=== PATIENT | female | born 1935 | race Caucasian/White ===

== ENCOUNTER 2019-08-23 03:45 | Emergency (ER) | payer MEDICARE ==
[2019-08-23 04:00] VITALS: BP 156/81; PULSE 82
--- NOTE | 2019-08-23 04:25 | EDM.PDOC ---
ED HPI GENERAL MEDICAL PROBLEM - General Chief Complaint: Skin Complaint Stated Complaint: POST SURGER BLEED Time Seen by Provider: 08/23/19 04:12 Source of Information: Reports: Patient, RN Notes Reviewed History Limitations: Reports: No Limitations - History of Present Illness INITIAL COMMENTS - FREE TEXT/NARRATIVE: 83-year-old female presents emergency department today with complaint of bleeding from surgical site she recently had surgical excision on the back of her left arm she woke up this morning there was a large pool of blood she is very concerned. Denies any lightheaded feeling or dizziness - Related Data Allergies Allergy/AdvReac Type Severity Reaction Status Date / Time No Known Allergies Allergy Verified 08/16/14 08:15 Home Meds: Home Meds Potassium Chloride [Klor-Con 10] 10 meq PO BID 10/13/13 [History] Simvastatin 20 mg PO BEDTIME 10/13/13 [History] Triamterene/Hydrochlorothiazid [Triamterene-HCTZ 37.5-25 MG] 37.5 mg PO DAILY [History] metFORMIN [metFORMIN XR] 500 mg PO BIDM 10/13/13 [History] Aspirin [Children's Aspirin] 81 mg PO DAILY 07/09/14 [History] Cholecalciferol (Vitamin D3) [Vitamin D3] 2,000 unit PO DAILY 07/09/14 [History] Cyanocobalamin (Vitamin B-12) [Vitamin B12] 5,000 mcg PO DAILY 08/23/19 [History ] Memantine [Namenda] 10 mg PO BID 08/23/19 [History] Past Medical History Endocrine/Metabolic History: Reports: Diabetes, Type II Oncologic (Cancer) History: Reports: Malignant Melanoma - Past Surgical History GI Surgical History: Reports: Appendectomy Dermatological Surgical History: Reports: Skin Biopsy Social & Family History - Tobacco Use Smoking Status *Q: Never Smoker - Caffeine Use Caffeine Use: Reports: Coffee ED ROS GENERAL - Review of Systems Review Of Systems: See Below Constitutional: Reports: No Symptoms Respiratory: Reports: No Symptoms Cardiovascular: Reports: No Symptoms GI/Abdominal: Reports: No Symptoms Skin: Reports: Wound ED EXAM, SKIN/RASH Exam: See Below Text/Narrative:: Examination of the integument system after removing dressing which was consistent of dried blood the surgical wound is clean dry and intact I do not appreciate any active bleeding there is a small hematoma which is appreciated around the base of the wound otherwise sutures are tight no products are expressed with palpation Exam Limited By: No Limitations General Appearance: Alert, WD/WN, No Apparent Distress Course - Vital Signs Last Recorded V/S: Last Vital Signs Temp 97.6 F 08/23/19 04:00 Pulse 82 08/23/19 04:00 Resp 16 08/23/19 04:00 BP 156/81 H 08/23/19 04:00 Pulse Ox 97 08/23/19 04:00 Departure - Departure Time of Disposition: 04:24 Disposition: Home, Self-Care 01 Condition: Fair Clinical Impression: Visit for wound check - Discharge Information Referrals: PCP,None [Primary Care Provider] - Additional Instructions: Continue with wound care instructions already provided by dermatology keep follow-up with dermatology call or return to the emergency department worsening of symptoms. Sepsis Event Note - Evaluation Sepsis Screening Result: No Definite Risk - Focused Exam Vital Signs: Vital Signs Temp Pulse Resp BP Pulse Ox 08/23/19 04:00 97.6 F 82 16 156/81 H 97 08/23/19 03:59 97.6 F 82 16 156/81 H 97 Date Exam was Performed: 08/23/19 Time Exam was Performed: 04:21 - Assessment/Plan Plan: Assessment Acuity = acute Site and laterality = wound check Etiology = postsurgical Manifestations = none Location of injury = Home Lab values = none Plan Continue with wound care instructions follow-up with dermatology for postoperative care This note was dictated using [email or web address] voice recognition software please call with any questions on syntax or grammar.
== END 2019-08-23 04:29 | disposition home or self-care (01) ==
LOC: JP.ED 03:45
DX: L76.31 Postprocedural hematoma of skin and subcutaneous tissue following a dermatologic procedure (principal); E11.9 Type 2 diabetes mellitus without complications; Z79.899 Other long term (current) drug therapy; Z79.82 Long term (current) use of aspirin; Z79.84 Long term (current) use of oral hypoglycemic drugs
CPT/HCPCS: 99281; 99283

== ENCOUNTER 2021-09-05 14:25 | Emergency (ER) | payer MEDICARE ==
[2021-09-05] MEDS ORDERED: Glucagon,Human Recombinant 1 MG Vial IM PRN ×2 (16:16→17:02)
[2021-09-05] MEDS ORDERED: 50% Dextrose in Water 50 ML Syringe IVPUSH PRN ×2 (16:16→17:02)
[2021-09-05] MEDS ORDERED: Insulin Regular, Human 100 Units/ML 3 ML Vial SUBCUT ONE ×2 (16:16→17:02)
[2021-09-05 17:52] VITALS: BP 149/58; PULSE 64
[2021-09-05] MEDS ORDERED: Meclizine 25 MG Tab PO ONE (17:53)
[2021-09-05] MEDS ORDERED: Meclizine 25 MG Tab ONE (18:05)
== END 2021-09-05 18:11 | disposition home or self-care (01) ==
LOC: JP.ED 14:25
DX: E11.65 Type 2 diabetes mellitus with hyperglycemia (principal); E86.0 Dehydration; Z79.899 Other long term (current) drug therapy; Z79.84 Long term (current) use of oral hypoglycemic drugs; Z79.82 Long term (current) use of aspirin
CPT/HCPCS: 36415; 70450; 80053; 81001; 82947; 85025; 99283; 99284; A9270; J1815

== ENCOUNTER 2021-09-10 11:02 | Emergency (ER) | payer MEDICARE ==
[2021-09-10 11:31] VITALS: PULSE 84
[2021-09-10] MEDS ORDERED: Sodium Chloride 0.9% 10 ML Syringe FLUSH PRN (12:08)
[2021-09-10] MEDS ORDERED: Glucagon,Human Recombinant 1 MG Vial IM PRN (12:10)
[2021-09-10] MEDS ORDERED: 50% Dextrose in Water 50 ML Syringe IVPUSH PRN (12:10)
[2021-09-10] MEDS ORDERED: Insulin Regular, Human 100 Units/ML 3 ML Vial IVPUSH ONE (12:10)
[2021-09-10] MEDS ORDERED: Lactated Ringers 1,000 ML IV SCH (12:15)
[2021-09-10] MEDS ORDERED: metFORMIN 500 MG Tab PO ONE ×2 (12:16→14:48)
[2021-09-10 15:09] VITALS: BP 129/71
== END 2021-09-10 15:40 | disposition home or self-care (01) ==
LOC: JP.ED 11:02
DX: E11.65 Type 2 diabetes mellitus with hyperglycemia (principal); Z90.49 Acquired absence of other specified parts of digestive tract; Z79.899 Other long term (current) drug therapy; Z79.82 Long term (current) use of aspirin; Z79.84 Long term (current) use of oral hypoglycemic drugs
CPT/HCPCS: 36415; 80053; 82947; 83036; 85025; 99283; 99284; A9270-GY; J1815-GY; J3490; J7120

== ENCOUNTER 2022-02-18 12:53 | Emergency (ER) | payer MEDICARE ==
[2022-02-18 14:08] VITALS: BP 136/66; PULSE 87
== END 2022-02-18 14:51 ==
LOC: JP.ED 12:53
DX: S63.621A Sprain of interphalangeal joint of right thumb, initial encounter (principal); S00.33XA Contusion of nose, initial encounter; I10 Essential (primary) hypertension; E11.9 Type 2 diabetes mellitus without complications; Z87.891 Personal history of nicotine dependence; Z88.0 Allergy status to penicillin; Z88.8 Allergy status to other drugs, medicaments and biological substances; Z79.82 Long term (current) use of aspirin; Z79.899 Other long term (current) drug therapy; Z79.84 Long term (current) use of oral hypoglycemic drugs; W18.30XA Fall on same level, unspecified, initial encounter
CPT/HCPCS: 73130-26-RT; 73130-RT; 99283

== ENCOUNTER 2022-05-23 09:24 | Emergency (ER) | payer MEDICARE, OTHER ==
[2022-05-23] MEDS ORDERED: Methocarbamol 500 MG Tab PO ONE (09:50)
[2022-05-23] MEDS ORDERED: fentaNYL 100 MCG/2 ML SDV IM ONE (09:50)
[2022-05-23 10:25] VITALS: BP 139/61; PULSE 71
== END 2022-05-23 11:04 | disposition home or self-care (01) ==
LOC: JP.ED 09:24
DX: M54.50 Low back pain, unspecified (principal); I10 Essential (primary) hypertension; E11.9 Type 2 diabetes mellitus without complications; Z88.0 Allergy status to penicillin; Z88.6 Allergy status to analgesic agent; Z79.899 Other long term (current) drug therapy; Z79.84 Long term (current) use of oral hypoglycemic drugs; Z79.82 Long term (current) use of aspirin; Z90.49 Acquired absence of other specified parts of digestive tract; Z87.891 Personal history of nicotine dependence; W19.XXXA Unspecified fall, initial encounter
CPT/HCPCS: 96372; 99283; 99284; A9270-GY; J3010

== ENCOUNTER 2022-05-24 18:22 | Observation (INO) | payer MEDICARE ==
[2022-05-24] MEDS ORDERED: oxyCODONE 5 MG Tab PO ONE (18:37)
[2022-05-24] MEDS ORDERED: Lidocaine 5% 700 MG Patch TRDERM ONE (19:13)
[2022-05-24 21:50] LABS: CORONAVIRUS COVID-19 NAA NEGATIVE (NEGATIVE)
[2022-05-24] MEDS ORDERED: LORazepam 2 MG/ML SDV IV PRN (23:34)
[2022-05-24] MEDS ORDERED: Ondansetron 4 MG Tab.DIS PO PRN (23:34)
[2022-05-24] MEDS ORDERED: Sodium Chloride 0.9% 1,000 ML IV SCH (23:34)
[2022-05-24] MEDS ORDERED: traMADol 50 MG Tab PO PRN (23:34)
[2022-05-24] MEDS ORDERED: Acetaminophen 325 MG Tab PO PRN (23:34)
[2022-05-24] MEDS ORDERED: Ondansetron 4 MG/2 ML SDV IV PRN (23:34)
[2022-05-25] MEDS ORDERED: Lisinopril 5 MG Tab ONE (00:34)
[2022-05-25] MEDS ORDERED: Lisinopril 5 MG Tab PO ONE (00:36)
[2022-05-25] MEDS: Lisinopril 2.5 MG Tab PO SCH ×2 (00:37→08:23)
[2022-05-25] MEDS: Memantine 10 MG Tab PO SCH ×3 (00:48→08:23)
[2022-05-25] MEDS: Potassium Chloride 10 MEQ Cap.ER PO SCH ×2 (00:48→00:51)
[2022-05-25] MEDS: Aspirin 81 MG Tab.Chew PO SCH ×3 (00:49→08:21)
[2022-05-25] MEDS ORDERED: Levothyroxine 25 MCG Tab PO SCH (07:30)
[2022-05-25] MEDS ORDERED: Potassium Chloride 10 MEQ Cap.ER PO SCH (08:00)
[2022-05-25] MEDS ORDERED: Furosemide 20 MG Tab PO SCH (09:00)
[2022-05-25 11:34] VITALS: BP 139/72; PULSE 76
== END 2022-05-25 14:15 | disposition home or self-care (01) ==
LOC: JP.ED 18:22 → JP.MS 21:51
PROVIDERS: ADMIT Internal Medicine; ATTEND Internal Medicine
DX: M54.50 Low back pain, unspecified (principal); M51.36 Other intervertebral disc degeneration, lumbar region; F03.90 Unspecified dementia, unspecified severity, without behavioral disturbance, psychotic disturbance, mood disturbance, and anxiety; F44.89 Other dissociative and conversion disorders; E86.0 Dehydration; I12.9 Hypertensive chronic kidney disease with stage 1 through stage 4 chronic kidney disease, or unspecified chronic kidney disease; E11.22 Type 2 diabetes mellitus with diabetic chronic kidney disease; N18.30 Chronic kidney disease, stage 3 unspecified; M47.816 Spondylosis without myelopathy or radiculopathy, lumbar region; Z74.09 Other reduced mobility; Z78.9 Other specified health status; Z79.899 Other long term (current) drug therapy; Z79.82 Long term (current) use of aspirin; Z79.4 Long term (current) use of insulin; Z20.822 Contact with and (suspected) exposure to COVID-19; Z88.0 Allergy status to penicillin; Z88.6 Allergy status to analgesic agent; Z98.890 Other specified postprocedural states
CPT/HCPCS: 0241U; 36415; 72100; 80048; 81001; 82947; 85025; 97112; 97161; 99223; 99238; 99284; A9270; G0378

== ENCOUNTER 2022-05-25 19:59 | Inpatient (IN) | payer MEDICARE, OTHER ==
[2022-05-25 20:40] LABS: ESTIMATED GFR 40 mL/min (>60)
[2022-05-25 20:56] LABS: CORONAVIRUS COVID-19 NAA NEGATIVE (NEGATIVE)
[2022-05-26] MEDS ORDERED: LORazepam 0.5 MG Tab PO PRN (04:45)
[2022-05-26] MEDS ORDERED: Lidocaine 5% 700 MG Patch TRDERM ONE (04:45)
[2022-05-26] MEDS: OLANZapine 5 MG Tab PO SCH (10:16)
[2022-05-26] MEDS: Divalproex Sodium Delayed-Release 250 MG Tab.CR PO SCH ×2 (11:53→16:22)
[2022-05-26] MEDS ORDERED: 50% Dextrose in Water 50 ML Syringe IV PRN (12:01)
[2022-05-26] MEDS ORDERED: traMADol 50 MG Tab PO PRN (12:01)
[2022-05-26] MEDS ORDERED: Haloperidol Lactate 5 MG/ML SDV IVPUSH PRN (12:01)
[2022-05-26] MEDS ORDERED: Ondansetron 4 MG/2 ML SDV IV PRN (12:01)
[2022-05-26] MEDS ORDERED: Glucose Gel 15 GM in 37.5 GM Tube PO PRN (12:01)
[2022-05-26] MEDS ORDERED: Sodium Chloride 0.9% 10 ML Syringe FLUSH PRN (12:01)
[2022-05-26] MEDS: Lidocaine 5% 700 MG Patch TRDERM SCH (13:05)
[2022-05-26] MEDS: Enoxaparin 30 MG/0.3 ML Syringe SUBCUT SCH (13:05)
[2022-05-26] MEDS: Acetaminophen 325 MG Tab PO PRN (13:06)
[2022-05-26] MEDS: Furosemide 20 MG Tab PO SCH (13:06)
[2022-05-26] MEDS: Insulin Lispro 100 Unit/ML 3 ML KwikPen SUBCUT SCH ×3 (13:10→21:02)
[2022-05-26] MEDS: Potassium Chloride 10 MEQ Cap.ER PO SCH (16:22)
[2022-05-26] MEDS ORDERED: Divalproex Sodium Delayed-Release 250 MG Tab.CR PO SCH (17:00)
[2022-05-26] MEDS ORDERED: Lisinopril 5 MG Tab PO ONE (17:27)
[2022-05-26] MEDS: Memantine 10 MG Tab PO SCH (21:09)
[2022-05-26] MEDS: Insulin Glargine,Human Rec. Analog 100 Units/ML 3 ML Pen SUBCUT SCH (21:10)
[2022-05-27] MEDS: Insulin Lispro 100 Unit/ML 3 ML KwikPen SUBCUT SCH ×4 (07:51→21:15)
[2022-05-27] MEDS: Acetaminophen 325 MG Tab PO PRN (08:14)
[2022-05-27] MEDS: Aspirin 81 MG Tab.Chew PO SCH (08:14)
[2022-05-27] MEDS: Lisinopril 10 MG Tab PO SCH (08:14)
[2022-05-27] MEDS: Lidocaine 5% 700 MG Patch TRDERM SCH (08:15)
[2022-05-27] MEDS: Divalproex Sodium Delayed-Release 250 MG Tab.CR PO SCH ×2 (08:15→17:06)
[2022-05-27] MEDS: Furosemide 20 MG Tab PO SCH (08:15)
[2022-05-27] MEDS: Levothyroxine 25 MCG Tab PO SCH (08:15)
[2022-05-27] MEDS: Potassium Chloride 10 MEQ Cap.ER PO SCH ×2 (08:15→17:05)
[2022-05-27] MEDS: OLANZapine 5 MG Tab PO SCH (08:15)
[2022-05-27] MEDS: Memantine 10 MG Tab PO SCH ×2 (08:16→21:19)
[2022-05-27] MEDS ORDERED: Lisinopril 2.5 MG Tab PO SCH (09:00)
[2022-05-27] MEDS: Enoxaparin 30 MG/0.3 ML Syringe SUBCUT SCH (12:19)
[2022-05-27] MEDS: Insulin Glargine,Human Rec. Analog 100 Units/ML 3 ML Pen SUBCUT SCH (21:19)
[2022-05-28] MEDS: Acetaminophen 325 MG Tab PO PRN (03:47)
[2022-05-28] MEDS: Insulin Lispro 100 Unit/ML 3 ML KwikPen SUBCUT SCH ×4 (07:45→21:11)
[2022-05-28] MEDS: Divalproex Sodium Delayed-Release 250 MG Tab.CR PO SCH ×2 (08:03→18:04)
[2022-05-28] MEDS: Levothyroxine 25 MCG Tab PO SCH (08:03)
[2022-05-28] MEDS: Lidocaine 5% 700 MG Patch TRDERM SCH (08:03)
[2022-05-28] MEDS: Aspirin 81 MG Tab.Chew PO SCH (08:03)
[2022-05-28] MEDS: Furosemide 20 MG Tab PO SCH (08:04)
[2022-05-28] MEDS: Lisinopril 10 MG Tab PO SCH (08:04)
[2022-05-28] MEDS: Potassium Chloride 10 MEQ Cap.ER PO SCH ×2 (08:04→18:04)
[2022-05-28] MEDS: OLANZapine 5 MG Tab PO SCH (08:04)
[2022-05-28] MEDS: Memantine 10 MG Tab PO SCH ×2 (08:04→20:20)
[2022-05-28] MEDS: Tamsulosin 0.4 MG Cap.ER PO SCH (08:07)
[2022-05-28] MEDS: Enoxaparin 30 MG/0.3 ML Syringe SUBCUT SCH (12:20)
[2022-05-28] MEDS ORDERED: traMADol 50 MG Tab PO PRN (12:53)
[2022-05-28] MEDS: cefTRIAXone 1 GM in Sodium Chloride 0.9% 50 ML IV SCH (13:58)
[2022-05-28] MEDS: Insulin Glargine,Human Rec. Analog 100 Units/ML 3 ML Pen SUBCUT SCH (21:10)
[2022-05-29] MEDS: Insulin Lispro 100 Unit/ML 3 ML KwikPen SUBCUT SCH ×4 (07:40→21:50)
[2022-05-29] MEDS: Levothyroxine 25 MCG Tab PO SCH (08:03)
[2022-05-29] MEDS: Divalproex Sodium Delayed-Release 250 MG Tab.CR PO SCH (08:24)
[2022-05-29] MEDS: Potassium Chloride 10 MEQ Cap.ER PO SCH ×2 (08:24→17:06)
[2022-05-29] MEDS: Furosemide 20 MG Tab PO SCH (09:39)
[2022-05-29] MEDS: OLANZapine 5 MG Tab PO SCH (09:39)
[2022-05-29] MEDS: Tamsulosin 0.4 MG Cap.ER PO SCH (09:39)
[2022-05-29] MEDS: Lisinopril 10 MG Tab PO SCH (09:39)
[2022-05-29] MEDS: Aspirin 81 MG Tab.Chew PO SCH (09:39)
[2022-05-29] MEDS: Memantine 10 MG Tab PO SCH ×2 (09:39→21:59)
[2022-05-29] MEDS: Lidocaine 5% 700 MG Patch TRDERM SCH (12:17)
[2022-05-29] MEDS: Enoxaparin 30 MG/0.3 ML Syringe SUBCUT SCH (12:36)
[2022-05-29] MEDS: cefTRIAXone 1 GM in Sodium Chloride 0.9% 50 ML IV SCH (13:14)
[2022-05-29] MEDS: Sodium Chloride 0.9% 1,000 ML IV SCH (17:07)
[2022-05-29] MEDS: Ibuprofen 400 MG Tab PO PRN (17:26)
[2022-05-29] MEDS: Insulin Glargine,Human Rec. Analog 100 Units/ML 3 ML Pen SUBCUT SCH (21:56)
[2022-05-30] MEDS: traMADol 50 MG Tab PO PRN ×2 (03:05→20:13)
[2022-05-30] MEDS: Potassium Chloride 10 MEQ Cap.ER PO SCH ×2 (07:14→16:35)
[2022-05-30] MEDS: Levothyroxine 25 MCG Tab PO SCH (07:14)
[2022-05-30] MEDS: Insulin Lispro 100 Unit/ML 3 ML KwikPen SUBCUT SCH ×4 (08:04→21:05)
[2022-05-30] MEDS: Furosemide 20 MG Tab PO SCH (09:43)
[2022-05-30] MEDS: Aspirin 81 MG Tab.Chew PO SCH (09:44)
[2022-05-30] MEDS: Memantine 10 MG Tab PO SCH ×2 (09:44→20:13)
[2022-05-30] MEDS: Tamsulosin 0.4 MG Cap.ER PO SCH (09:44)
[2022-05-30] MEDS: Lisinopril 10 MG Tab PO SCH (09:44)
[2022-05-30] MEDS: Acetaminophen 325 MG Tab PO SCH ×3 (09:47→22:55)
[2022-05-30] MEDS: Lidocaine 5% 700 MG Patch TRDERM SCH (10:07)
[2022-05-30] MEDS: Sodium Chloride 0.9% 1,000 ML IV SCH (12:33)
[2022-05-30] MEDS: Enoxaparin 30 MG/0.3 ML Syringe SUBCUT SCH (13:32)
[2022-05-30] MEDS: cefTRIAXone 1 GM in Sodium Chloride 0.9% 50 ML IV SCH (13:33)
[2022-05-30] MEDS: OLANZapine 5 MG Tab PO SCH (20:13)
[2022-05-30] MEDS: Insulin Glargine,Human Rec. Analog 100 Units/ML 3 ML Pen SUBCUT SCH (21:08)
[2022-05-31] MEDS: Acetaminophen 325 MG Tab PO SCH ×4 (05:17→21:07)
[2022-05-31] MEDS: Insulin Lispro 100 Unit/ML 3 ML KwikPen SUBCUT SCH ×4 (07:42→21:07)
[2022-05-31] MEDS: Levothyroxine 25 MCG Tab PO SCH (08:04)
[2022-05-31] MEDS: Lisinopril 10 MG Tab PO SCH (08:04)
[2022-05-31] MEDS: Tamsulosin 0.4 MG Cap.ER PO SCH (08:04)
[2022-05-31] MEDS: Memantine 10 MG Tab PO SCH ×2 (08:04→20:27)
[2022-05-31] MEDS: Lidocaine 5% 700 MG Patch TRDERM SCH (08:05)
[2022-05-31] MEDS: Furosemide 20 MG Tab PO SCH (08:05)
[2022-05-31] MEDS: Aspirin 81 MG Tab.Chew PO SCH (08:05)
[2022-05-31] MEDS: Potassium Chloride 10 MEQ Cap.ER PO SCH ×2 (08:05→16:20)
[2022-05-31] MEDS ORDERED: Potassium Chloride 20 MEQ Tab.ER PO ONE (08:30)
[2022-05-31] MEDS: cefTRIAXone 1 GM in Sodium Chloride 0.9% 50 ML IV SCH (13:32)
[2022-05-31] MEDS: Enoxaparin 30 MG/0.3 ML Syringe SUBCUT SCH (13:32)
[2022-05-31] MEDS: traMADol 50 MG Tab PO PRN (20:26)
[2022-05-31] MEDS: OLANZapine 5 MG Tab PO SCH (20:27)
[2022-05-31] MEDS: Insulin Glargine,Human Rec. Analog 100 Units/ML 3 ML Pen SUBCUT SCH (21:06)
[2022-06-01] MEDS: Acetaminophen 325 MG Tab PO SCH ×4 (05:02→21:07)
[2022-06-01] MEDS: Insulin Lispro 100 Unit/ML 3 ML KwikPen SUBCUT SCH ×4 (07:39→21:07)
[2022-06-01] MEDS: Potassium Chloride 10 MEQ Cap.ER PO SCH ×2 (09:00→17:23)
[2022-06-01] MEDS: Aspirin 81 MG Tab.Chew PO SCH (09:00)
[2022-06-01] MEDS: Furosemide 20 MG Tab PO SCH (09:00)
[2022-06-01] MEDS: Lisinopril 10 MG Tab PO SCH (09:00)
[2022-06-01] MEDS: Tamsulosin 0.4 MG Cap.ER PO SCH (09:01)
[2022-06-01] MEDS: Lidocaine 5% 700 MG Patch TRDERM SCH (09:08)
[2022-06-01] MEDS: Levothyroxine 25 MCG Tab PO SCH (09:08)
[2022-06-01] MEDS: Memantine 10 MG Tab PO SCH ×2 (09:09→20:49)
[2022-06-01] MEDS: traMADol 50 MG Tab PO PRN ×2 (09:35→20:48)
[2022-06-01] MEDS: Ibuprofen 400 MG Tab PO PRN (12:08)
[2022-06-01] MEDS: Enoxaparin 30 MG/0.3 ML Syringe SUBCUT SCH (12:09)
[2022-06-01] MEDS: cefTRIAXone 1 GM in Sodium Chloride 0.9% 50 ML IV SCH (13:04)
[2022-06-01] MEDS: OLANZapine 5 MG Tab PO SCH (20:49)
[2022-06-01] MEDS: Insulin Glargine,Human Rec. Analog 100 Units/ML 3 ML Pen SUBCUT SCH (21:08)
[2022-06-02] MEDS: Acetaminophen 325 MG Tab PO SCH ×5 (04:39→21:30)
[2022-06-02] MEDS: Insulin Lispro 100 Unit/ML 3 ML KwikPen SUBCUT SCH ×4 (08:18→21:22)
[2022-06-02] MEDS: Levothyroxine 25 MCG Tab PO SCH (08:18)
[2022-06-02] MEDS: Potassium Chloride 10 MEQ Cap.ER PO SCH ×2 (08:19→16:39)
[2022-06-02] MEDS: Lisinopril 10 MG Tab PO SCH (08:23)
[2022-06-02] MEDS: Tamsulosin 0.4 MG Cap.ER PO SCH (08:23)
[2022-06-02] MEDS: Memantine 10 MG Tab PO SCH ×2 (08:23→21:30)
[2022-06-02] MEDS: Lidocaine 5% 700 MG Patch TRDERM SCH (08:23)
[2022-06-02] MEDS: Aspirin 81 MG Tab.Chew PO SCH (08:23)
[2022-06-02] MEDS: Furosemide 20 MG Tab PO SCH (08:23)
[2022-06-02] MEDS: traMADol 50 MG Tab PO PRN (14:19)
[2022-06-02] MEDS: Enoxaparin 30 MG/0.3 ML Syringe SUBCUT SCH (14:20)
[2022-06-02] MEDS: Insulin Glargine,Human Rec. Analog 100 Units/ML 3 ML Pen SUBCUT SCH (21:25)
[2022-06-02] MEDS: OLANZapine 5 MG Tab PO SCH (21:30)
[2022-06-03] MEDS: Acetaminophen 325 MG Tab PO SCH ×5 (04:50→21:32)
[2022-06-03] MEDS: traMADol 50 MG Tab PO PRN (07:51)
[2022-06-03] MEDS: Levothyroxine 25 MCG Tab PO SCH (07:52)
[2022-06-03] MEDS: Potassium Chloride 10 MEQ Cap.ER PO SCH ×2 (07:52→16:48)
[2022-06-03] MEDS: Insulin Lispro 100 Unit/ML 3 ML KwikPen SUBCUT SCH ×4 (07:52→21:27)
[2022-06-03] MEDS: Tamsulosin 0.4 MG Cap.ER PO SCH (08:56)
[2022-06-03] MEDS: Aspirin 81 MG Tab.Chew PO SCH (08:56)
[2022-06-03] MEDS: Lisinopril 10 MG Tab PO SCH (08:56)
[2022-06-03] MEDS: Furosemide 20 MG Tab PO SCH (08:56)
[2022-06-03] MEDS: Memantine 10 MG Tab PO SCH ×2 (08:56→20:02)
[2022-06-03] MEDS: Lidocaine 5% 700 MG Patch TRDERM SCH (08:56)
[2022-06-03] MEDS: Enoxaparin 30 MG/0.3 ML Syringe SUBCUT SCH (13:55)
[2022-06-03] MEDS: OLANZapine 5 MG Tab PO SCH (20:02)
[2022-06-03] MEDS: Insulin Glargine,Human Rec. Analog 100 Units/ML 3 ML Pen SUBCUT SCH (21:28)
[2022-06-04] MEDS: Acetaminophen 325 MG Tab PO SCH ×4 (04:21→22:41)
[2022-06-04] MEDS: Insulin Lispro 100 Unit/ML 3 ML KwikPen SUBCUT SCH ×4 (09:06→22:38)
[2022-06-04] MEDS: Furosemide 20 MG Tab PO SCH (09:06)
[2022-06-04] MEDS: Levothyroxine 25 MCG Tab PO SCH (09:06)
[2022-06-04] MEDS: Aspirin 81 MG Tab.Chew PO SCH (09:07)
[2022-06-04] MEDS: Tamsulosin 0.4 MG Cap.ER PO SCH (09:07)
[2022-06-04] MEDS: Lidocaine 5% 700 MG Patch TRDERM SCH (09:07)
[2022-06-04] MEDS: Memantine 10 MG Tab PO SCH ×2 (09:07→22:41)
[2022-06-04] MEDS: Potassium Chloride 10 MEQ Cap.ER PO SCH ×2 (09:07→17:35)
[2022-06-04] MEDS: Lisinopril 10 MG Tab PO SCH (09:11)
[2022-06-04] MEDS: Enoxaparin 30 MG/0.3 ML Syringe SUBCUT SCH (14:11)
[2022-06-04] MEDS: Insulin Glargine,Human Rec. Analog 100 Units/ML 3 ML Pen SUBCUT SCH (22:39)
[2022-06-04] MEDS: OLANZapine 5 MG Tab PO SCH (22:41)
[2022-06-05] MEDS: Acetaminophen 325 MG Tab PO SCH ×4 (04:49→21:49)
[2022-06-05] MEDS: Memantine 10 MG Tab PO SCH ×2 (08:29→21:45)
[2022-06-05] MEDS: Tamsulosin 0.4 MG Cap.ER PO SCH (08:29)
[2022-06-05] MEDS: Potassium Chloride 10 MEQ Cap.ER PO SCH ×2 (08:29→17:48)
[2022-06-05] MEDS: Aspirin 81 MG Tab.Chew PO SCH (08:29)
[2022-06-05] MEDS: Lidocaine 5% 700 MG Patch TRDERM SCH (08:30)
[2022-06-05] MEDS: Levothyroxine 25 MCG Tab PO SCH (08:30)
[2022-06-05] MEDS: Lisinopril 10 MG Tab PO SCH (08:31)
[2022-06-05] MEDS: Furosemide 20 MG Tab PO SCH (08:33)
[2022-06-05] MEDS: Insulin Lispro 100 Unit/ML 3 ML KwikPen SUBCUT SCH ×2 (08:36→13:24)
[2022-06-05] MEDS ORDERED: traMADol 50 MG Tab PO PRN (11:50)
[2022-06-05] MEDS: Acetaminophen 500 MG Tab PO SCH ×2 (21:44→21:46)
[2022-06-05] MEDS: OLANZapine 5 MG Tab PO SCH (21:45)
[2022-06-05] MEDS: Insulin Glargine,Human Rec. Analog 100 Units/ML 3 ML Pen SUBCUT SCH (21:59)
[2022-06-06] MEDS: Lidocaine 5% 700 MG Patch TRDERM SCH (09:19)
[2022-06-06] MEDS: Furosemide 20 MG Tab PO SCH (09:19)
[2022-06-06] MEDS: Memantine 10 MG Tab PO SCH (09:19)
[2022-06-06] MEDS: Levothyroxine 25 MCG Tab PO SCH (09:19)
[2022-06-06] MEDS: Tamsulosin 0.4 MG Cap.ER PO SCH (09:20)
[2022-06-06] MEDS: Potassium Chloride 10 MEQ Cap.ER PO SCH (09:20)
[2022-06-06] MEDS: Acetaminophen 500 MG Tab PO SCH (09:20)
[2022-06-06] MEDS: Aspirin 81 MG Tab.Chew PO SCH (09:20)
[2022-06-06] MEDS: Lisinopril 10 MG Tab PO SCH (09:27)
[2022-06-06] MEDS ORDERED: LORazepam ORAL Concentrate 1MG/0.5ML U/D PO PRN (10:54)
[2022-06-06] MEDS ORDERED: Morphine 10 MG/0.5 ML Oral Syringe PO PRN (10:54)
[2022-06-07] MEDS: Lidocaine 5% 700 MG Patch TRDERM SCH (12:41)
[2022-06-08] MEDS: Lidocaine 5% 700 MG Patch TRDERM SCH (08:41)
[2022-06-08 10:50] VITALS: BP 100/55; PULSE 88
== END 2022-06-08 14:00 | disposition hospice, home (50) | DRG 57 ==
LOC: JP.ED 19:59 → JP.ICU 05-26 09:29 → UNDOADMIN 05-26 09:29 → JP.MS 05-31 16:15
PROVIDERS: ADMIT Hospitalist; ATTEND Internal Medicine
DX: R41.0 Disorientation, unspecified (principal); T40.2X5A Adverse effect of other opioids, initial encounter; G30.9 Alzheimer's disease, unspecified; Z20.822 Contact with and (suspected) exposure to COVID-19; E11.9 Type 2 diabetes mellitus without complications; I10 Essential (primary) hypertension; F02.811 Dementia in other diseases classified elsewhere, unspecified severity, with agitation; N30.00 Acute cystitis without hematuria; Z79.899 Other long term (current) drug therapy; W18.30XA Fall on same level, unspecified, initial encounter; I12.9 Hypertensive chronic kidney disease with stage 1 through stage 4 chronic kidney disease, or unspecified chronic kidney disease; N18.31 Chronic kidney disease, stage 3a; Z51.5 Encounter for palliative care; Z66 Do not resuscitate; H54.7 Unspecified visual loss; M54.50 Low back pain, unspecified; M19.90 Unspecified osteoarthritis, unspecified site; Z88.0 Allergy status to penicillin; Z79.82 Long term (current) use of aspirin; Z79.890 Hormone replacement therapy; Z79.4 Long term (current) use of insulin; Z90.49 Acquired absence of other specified parts of digestive tract
CPT/HCPCS: 0241U; 36415; 51702; 51798; 70450; 72131; 76377; 80048; 80053; 81001; 82947; 85025; 85027; 97110; 97116; 97162; 97165; 97530; 97535; 99223; 99233; 99239; 99285; A9270-GY; J0696; J1650; J1815; J1815-GY; J3490; J7030